=== PATIENT | female | born 1985 | race African-American/Black ===

== ENCOUNTER 2016-08-29 21:00 | Emergency (ER) | payer OTHER ==
[~2016-08-29] VITALS: Ht 180.3 cm; Wt 240.8 kg
[~2016-08-29 21:00] MED LIST: ATARAX,VISTARIL25 MG PO; COREG6.25 M1 PO; EFFEXOR XR75 MG PO; FIORICET 50-301 EACH PO; FIORICET,ESG1 TABLET PO; LATUDA40 MG PO; NECON1 EAC2 PO; NICODERM CQ1 EAC2 TD; VENLAFAXINE HC150 M1 PO; ZANTAC300 MG PO; ZIPRASIDONE HCL80 MG PO; ZOFRAN ODT4 MG PO
[2016-08-29 21:28] LABS: HEMATOCRIT 39.7 % (36.0-46.0); MCH 29.8 PG (29.0-34.0); MCV 90.4 FL (83-99); MEAN PLAT.VOLUME 9.4 uM^3 (9.5-12.4); PLATELET COUNT 218 K/uL (156-360); RBC DIS.WIDTH-CV 13.2 % (11.8-14.6); RBC DIS.WIDTH-SD 42.9 % (39-53); RED BLOOD COUNT 4.39 M/uL (3.80-5.20); WHITE BLOOD COUNT 7.7 K/uL (4.1-10.2)
[2016-08-29 21:37] LABS: CHLORIDE 107 mEq/L (99-109); POTASSIUM 4.2 mEq/L (3.7-5.4); SODIUM 140 mEq/L (136-147)
[2016-08-29 21:38] LABS: GLUCOSE 99 mg/dL (70-99)
[2016-08-29 21:40] LABS: ANION GAP 11 MEQ/L (2-14)
[2016-08-29 21:42] LABS: D-DIMER ELISA 0.35 mg/L FEU (< 0.57); GFR ESTIMATE (CALCULATED) > 59 mL/min/
[2016-08-29 21:43] LABS: UREA NITROGEN (BUN) 18 mg/dL (9-23)
[2016-08-29 21:56] LABS: QUANTITATIVE HCG < 4.0 MIU/ML
[2016-08-29 22:01] LABS: TOTAL BILIRUBIN 0.2 mg/dL (0.0-1.0)
[2016-08-29 22:02] LABS: ALKALINE PHOSPHATASE 59 IU/L (3-129)
[2016-08-29 22:04] LABS: DIRECT BILIRUBIN 0.1 mg/dL (0.0-0.3)
[2016-08-29 22:05] LABS: LIPASE 17 U/L (1.0-51.0)
[2016-08-29 22:07] LABS: TROP-I INTERPRETATION NEGATIVE; TROPONIN-I < 0.01 ng/mL (0.0-0.30)
[2016-08-29 22:51] LABS: INTER. NORMALIZED RATIO 1.1; PROTHROMBIN TIME 10.7 (9.2-11.2); PTT 25.8 (25-32)
[2016-08-29 23:46] LABS: TROP-I INTERPRETATION NEGATIVE; TROPONIN-I < 0.01 ng/mL (0.0-0.30)
[2016-08-30 00:14] VITALS: BP 109/64
== END 2016-08-30 00:27 | disposition home or self-care (01) ==
LOC: EME → EDBD 21:00 → EME 08-30 00:27
PROVIDERS: Emergency Medicine
DX: R07.9 Chest pain, unspecified (principal); I49.3 Ventricular premature depolarization; R06.02 Shortness of breath; I10 Essential (primary) hypertension; F17.200 Nicotine dependence, unspecified, uncomplicated
CPT/HCPCS: 71020; 80048; 80076; 83690; 84484; 84702; 85027; 85379; 85610; 85730; 93005; 99281; 99285; J7030

== ENCOUNTER 2016-09-05 13:34 | Emergency (ER) | payer OTHER ==
[~2016-09-05] VITALS: Ht 180.3 cm; Wt 238.4 kg
[2016-09-05] MEDS ORDERED: PEPCID20 MG PO (14:33)
[2016-09-05] MEDS ORDERED: LIDOCAINE HCL20 ML MM (14:33)
[2016-09-05 14:46] VITALS: BP 149/80
== END 2016-09-05 14:47 | disposition home or self-care (01) ==
LOC: EME 13:34 → EXP 13:34
DX: J06.9 Acute upper respiratory infection, unspecified (principal); R10.9 Unspecified abdominal pain
CPT/HCPCS: 87651 90; 99281; 99283

== ENCOUNTER 2016-11-03 10:35 | Emergency (ER) | payer OTHER ==
[~2016-11-03] VITALS: Ht 167.6 cm; Wt 234.9 kg
[~2016-11-03 10:35] MED LIST changes: +LIDOCAINE HCL20 ML MM; +PEPCID20 MG PO
[2016-11-03 11:45] LABS: HEMATOCRIT 41.9 % (36.0-46.0); MCHC 32.5 G/DL (30.0-36.0); MCV 89.3 FL (83-99); MEAN PLAT.VOLUME 9.9 uM^3 (9.5-12.4); PLATELET COUNT 197 K/uL (156-360); RBC DIS.WIDTH-CV 11.9 % (11.8-14.6); RBC DIS.WIDTH-SD 37.9 % (39-53); RED BLOOD COUNT 4.69 M/uL (3.80-5.20); WHITE BLOOD COUNT 4.7 K/uL (4.1-10.2)
[2016-11-03 11:45] LABS: ADD MIUA? YES; BILIRUBIN NEGATIVE; BLOOD NEGATIVE; COLOR YELLOW ((YELLOW)); GLUCOSE (STRIP) NEGATIVE; INTERNAL CONTROL VALID? YES; KETONES NEGATIVE; LEUKOCYTES NEGATIVE; NITRITE NEGATIVE; PROTEIN (STRIP) NEGATIVE; SPECIFIC GRAVITY 1.012 (1.000-1.030); UROBILINOGEN 0.2 MG/DL (0.2-1.0)
[2016-11-03 11:50] LABS: CHLORIDE 104 mEq/L (99-109); POTASSIUM 4.1 mEq/L (3.7-5.4); SODIUM 140 mEq/L (136-147)
[2016-11-03 11:52] LABS: GLUCOSE 90 mg/dL (70-99)
[2016-11-03 11:53] LABS: BACTERIA RARE /HPF; BUDDING YEAST 2+; EPITHELIAL CELLS RARE /HPF; MUCUS TRACE /LPF; RED BLOOD CELLS 0-5 /HPF (0-5); UCUL ADDED? NO; WHITE BLOOD CELLS 0-5 /HPF (0-5)
[2016-11-03 11:54] LABS: ANION GAP 10 MEQ/L (2-14); TOTAL BILIRUBIN 0.5 mg/dL (0.0-1.0)
[2016-11-03 11:56] LABS: ALKALINE PHOSPHATASE 56 IU/L (3-129); GFR ESTIMATE (CALCULATED) > 59 mL/min/
[2016-11-03 11:57] LABS: UREA NITROGEN (BUN) 11 mg/dL (9-23)
[2016-11-03 14:19] VITALS: BP 100/77
== END 2016-11-03 14:20 | disposition home or self-care (01) ==
LOC: EME 10:35
PROVIDERS: Emergency Medicine
DX: F33.2 Major depressive disorder, recurrent severe without psychotic features (principal); T43.206A Underdosing of unspecified antidepressants, initial encounter; I10 Essential (primary) hypertension; E11.9 Type 2 diabetes mellitus without complications; Z91.128 Patient's intentional underdosing of medication regimen for other reason; E78.5 Hyperlipidemia, unspecified; F17.200 Nicotine dependence, unspecified, uncomplicated
CPT/HCPCS: 80053; 81003; 84703; 85027; 90839; 99281; 99285